=== PATIENT | female | born 1935 | race Two or more races ===

== ENCOUNTER 2018-10-29 09:58 | Day surgery (SDC) | payer MEDICAID ==
--- NOTE | 2018-10-29 07:40 | HP ---
DATE OF SURGERY: 10/29/2018 ANTICIPATED PROCEDURE: Colonoscopy. HISTORY OF PRESENT ILLNESS: The patient has had three years of pain. Constipation in 2012. She has not had a recent colonoscopic examination and presents for such. PAST MEDICAL HISTORY: ALLERGIES: NONE. MEDICATIONS: See list. PAST SURGICAL HISTORY: None recently. SOCIAL HISTORY: Negative. FAMILY HISTORY: Negative. REVIEW OF SYSTEMS: CVS: Negative. Pulmonary negative. GI: Present illness. : Negative. PHYSICAL EXAMINATION: VITAL SIGNS: Normal. CHEST: Clear. COR: Regular. ABDOMEN: Satisfactory. IMPRESSION: Rectal pain, constipation, change in bowel habits. No recent scope. PLAN: Colonoscopy.
[2018-10-29] MEDS ORDERED: DIPRIVAN 200 MG/20 ML IV ONE (09:59)
[2018-10-29] MEDS ORDERED: Ketamine HCl 50 MG/ML IJ ONE (09:59)
[2018-10-29] MEDS ORDERED: ROBINUL IV ONE (09:59)
[2018-10-29] MEDS ORDERED: Lactated Ringers 1,000 ML IV SCH (11:00)
--- NOTE | 2018-10-29 13:04 | OP ---
SURGERY DATE/TIME: 10/29/2018 1145 PREOPERATIVE DIAGNOSIS: Major change in bowel habits. PROCEDURE: Colonoscopy complete to cecum. SURGEON: Ray Metz M.D. ANESTHESIA: COMPLICATIONS: None. CONDITION: Stable. INDICATION: The patient is 82 years old and had a major change in bowel habits, some abdominal discomfort, cramping and quite a bit of constipation. She had not has not had endoscopic examination, 82 years old. DESCRIPTION OF PROCEDURE: Taken to endoscopy. Left lateral decubitus position. MAC sedation provided. Anal digital examination satisfactory. Rectum is voluminous and the colon itself is large diameter about 4 inches and very long, about twice normal length. Despite this once the sigmoid was navigated the rest of the colon was navigated fairly readily to the mid ascending, distal ascending, ileocecal valve and the medial wall of the cecum was well seen. There was a little bit of obscuring behind the valve in the depth of the cecum but there was nothing gross visible. Circumferential withdrawal was satisfactory. IMPRESSION: Grossly normal examination except for severe diameter dilatation and redundancy of the colon. Instructions were given for continued significant use of fiber, six glasses of water to keep the bowels going. She could intermittently have a volvulus and will be studied again. I think a barium enema might actually suggest issues better than a colonoscopy.
[2018-10-29] MEDS ORDERED: APRESOLINE 20 MG/ML INJ IV ONE (13:18)
[2018-10-29 14:11] VITALS: BP 189/75; PULSE 64; O2SAT 95
== END 2018-10-29 14:48 | disposition home or self-care (01) ==
LOC: SDC 09:58
PROVIDERS: ATTEND Surgery
DX: K59.00 Constipation, unspecified (principal); R10.9 Unspecified abdominal pain; K59.39 Other megacolon; K62.89 Other specified diseases of anus and rectum; Q43.8 Other specified congenital malformations of intestine
CPT/HCPCS: J0360; J2704

== ENCOUNTER 2020-11-30 06:03 | Day surgery (SDC) | payer MEDICAID ==
--- NOTE | 2020-11-22 15:11 | HP ---
DATE OF SURGERY: 11/30/2020 HISTORY OF PRESENT ILLNESS: The patient presents with complaints of some rectal bleeding x1. The patient reports being chronically constipated. She presents in a wheelchair today. She is with her daughter. The patient does not speak very good Italian. The daughter is reporting that the patient has had an instance of some bright red rectal bleeding once. The patient complains of just some generalized abdominal pain, reports some upper abdominal burning. The patient's family has reported the patient has hemorrhoids. The patient has had a colonoscopy back in 2019 and found to have redundant colon. The patient declines colonoscopy today. The patient is agreeable to EGD. CT scan of the abdomen and pelvis was ordered for the patient. I do not feel there is any significant pathology occurring in the lower abdomen. However, we are waiting on CT scan report. PAST MEDICAL HISTORY: Hypertension, reflux. PAST SURGICAL HISTORY: Hysterectomy. Bilateral cataracts. ALLERGIES: NONE REPORTED. MEDICATIONS: Metoprolol, amlodipine, omeprazole, Michelle. FAMILY HISTORY: None reported. SOCIAL HISTORY: None reported. REVIEW OF SYSTEMS: CONSTITUTIONAL: Denies fever or chills. CHEST: Denies shortness of breath. CVS: Denies chest pain. ABDOMEN: Reports some generalized abdominal pain. Denies nausea, vomiting, diarrhea. Reports constipation. Reported bright red rectal bleeding. INTEGUMENTARY: Negative. PHYSICAL EXAMINATION: GENERAL: No acute distress. CHEST: Nonlabored. No shortness of breath. CVS: Regular rate and rhythm. ABDOMEN: Soft. EXTREMITIES: No edema. NEUROLOGIC: Alert. PSYCHIATRIC: Appropriate. IMPRESSION: Epigastric pain, upper abdominal burning. PLAN: EGD with Dr. Ray Metz. CT scan has been scheduled. As dictated by Karen Hi NP.
[2020-11-30] MEDS ORDERED: Lactated Ringers 1,000 ML IV SCH (06:30)
[2020-11-30] MEDS ORDERED: DIPRIVAN 200 MG/20 ML IV ONE ×2 (08:29→08:41)
--- NOTE | 2020-11-30 09:06 | OP ---
SURGERY DATE/TIME: 11/30/2020 0828 PREOPERATIVE DIAGNOSIS: Epigastric pain. POSTOPERATIVE DIAGNOSIS: Reflux disease with grade C/D gastroesophageal reflux disease and a 2 inch hiatal hernia. PROCEDURE: EGD. SURGEON: Ray Metz M.D. ANESTHESIA: MAC. COMPLICATIONS: None. CONDITION: Stable. INDICATION: A patient requiring evaluation. DESCRIPTION OF PROCEDURE: Taken to endoscopy. MAC sedation provided. Esophagus was cannulated. Pharygnoesophageal junction normal. Esophagus normal. Down to gastroesophageal junction a rim of esophagitis about 2 cm and total 360 degree circumferential was present. There was a 2 inch hiatal hernia. Fundus, body and antrum normal. Pylorus normal. Duodenal bulb normal. Second portion normal. Scope withdrawn. A keyhole view was totally normal. Scope looped upon itself. Retrograde and there was a 2 inch hiatal hernia. The patient tolerated the procedure satisfactorily. Her medicine was adjusted. She is also having CT scan. She did not want a colonoscopy. She did have one back in, I believe, 2019.
[2020-11-30 09:26] VITALS: O2SAT 100
[2020-11-30 09:37] VITALS: BP 162/83; PULSE 63
== END 2020-11-30 09:54 | disposition home or self-care (01) ==
LOC: SDC 06:03
PROVIDERS: ATTEND Surgery
DX: K21.9 Gastro-esophageal reflux disease without esophagitis (principal); K44.9 Diaphragmatic hernia without obstruction or gangrene; Z79.899 Other long term (current) drug therapy
CPT/HCPCS: J2704

== ENCOUNTER → 2021-08-22 | Day surgery (SDC) | payer MEDICAID ==
[~2021-08-22] MED LIST: BUPIVACAINE 0.5% VIAL IJ ONE; DIPRIVAN 200 MG/20 ML IV ONE; Depo-Medrol 40 MG/ML IM ONE; Lactated Ringers 1,000 ML IV ONE
--- NOTE | 2021-08-22 20:04 | XRAY ---
Indication: Left knee injection. Intraoperative fluoroscopy provided for 4 seconds. Single digital spot image submitted for interpretation demonstrates needle tip projecting over the left femur intercondylar notch. Small amount of contrast injected for needle tip placement. Correlate with intraoperative findings/report.
--- NOTE | 2021-08-22 20:04 | XRAY ---
Indication: Right knee injection. Intraoperative fluoroscopy provided for 13 seconds. Single digital spot image submitted for interpretation demonstrates needle tip projecting over the right femur intercondylar notch. Small amount of contrast injected for needle tip placement. Correlate with intraoperative findings/report.
--- NOTE | 2021-08-23 09:41 | XRAY ---
13 seconds of fluoroscopy was used in surgery for a right knee intra-articular injection.
--- NOTE | 2021-08-23 09:41 | XRAY ---
4 seconds of fluoroscopy was used in surgery for a left knee intra-articular knee injection.
== END ==
LOC: SDC-PAIN 15:26
PROVIDERS: ATTEND Psychiatry & Neurology Pain Medicine
DX: M17.0 Bilateral primary osteoarthritis of knee (principal); I10 Essential (primary) hypertension; Z79.899 Other long term (current) drug therapy
CPT/HCPCS: 20610; 73560; 77002; J1030; J2704; Q9966

== ENCOUNTER → 2021-09-26 | Day surgery (SDC) | payer MEDICAID ==
[~2021-09-26] MED LIST changes: -Lactated Ringers 1,000 ML IV ONE; +Xylocaine-Mpf 2% 5 Ml Vial ONE
--- NOTE | 2021-09-26 18:27 | XRAY ---
Indication: Left shoulder injection. Intraoperative fluoroscopy provided for 10 seconds. Single digital spot image submitted for interpretation demonstrates needle tip projecting over the left glenohumeral joint superiorly. Small amount of contrast injected for needle tip placement. Correlate with intraoperative findings/report.
--- NOTE | 2021-09-27 09:19 | XRAY ---
10 seconds fluoroscopy time in surgery for intra-articular injection of the left shoulder.
== END ==
LOC: SDC-PAIN 13:44
PROVIDERS: ATTEND Psychiatry & Neurology Pain Medicine
DX: M19.012 Primary osteoarthritis, left shoulder (principal); I10 Essential (primary) hypertension; Z79.899 Other long term (current) drug therapy
CPT/HCPCS: 20610; 73030; 77002; J1030; J2704; Q9966

== ENCOUNTER 2021-10-24 13:43 | Day surgery (SDC) | payer MEDICAID ==
[2021-10-24] MEDS ORDERED: Marcaine Mpf 0.5% Vial 30 Ml IJ ONE (13:44)
[2021-10-24] MEDS ORDERED: Depo-Medrol 40 MG/ML IM ONE (13:44)
[2021-10-24] MEDS ORDERED: Lactated Ringers 1,000 ML IV ONE (14:41)
[2021-10-24] MEDS ORDERED: DIPRIVAN 200 MG/20 ML IV ONE (15:03)
--- NOTE | 2021-10-24 16:35 | XRAY ---
Indication: Left shoulder subacromial bursa injection. Intraoperative fluoroscopy provided for 8 seconds. Single digital spot image submitted for interpretation demonstrates needle tip projecting over the left shoulder subacromial space. Small amount of contrast injected for needle tip placement. Correlate with intraoperative findings/report.
--- NOTE | 2021-10-24 16:43 | XRAY ---
8 seconds of fluoroscopy was used in surgery for a left shoulder subacromial bursa injection.
== END 2021-10-24 15:25 | disposition home or self-care (01) ==
LOC: SDC-PAIN 13:43
PROVIDERS: ATTEND Psychiatry & Neurology Pain Medicine
DX: M75.52 Bursitis of left shoulder (principal); Z79.899 Other long term (current) drug therapy
CPT/HCPCS: 20610; 73030; 77002; J1030; J2704; Q9966

== ENCOUNTER 2022-11-02 21:09 | Observation (INO) | payer MEDICAID ==
--- NOTE | 2022-11-02 22:42 | XRAY ---
CLINICAL HISTORY:Confusion; COMPARISON:None; TECHNIQUES:xial non-contrast CT scan of the brain was performed from the skull base to the high parietal region. CTDI: 112.29, DLP: 910.26. CTDI: 53.92; FINDINGS: There are ill-defined [id number] areas noted in the subcortical white matter bilaterally, suggestive of microvascular ischemic changes. The ventricular system, cortical sulci and basal cisterns are prominent consistent with senile changes. Schmidt-white matter differentiation is maintained. No midline shifts or deformity. No intracerebral or extra axial hematoma. Normal CT appearance of the posterior fossa structures namely the cerebellar hemispheres, brainstem and cerebellar peduncles. The IACs are unremarkable. The cerebello-pontine angles are clear. The pituitary gland, the pineal gland, the optic chiasm is unremarkable. The osseous structures in the skull base are unremarkable. No definite calvarium fractures. ThE scanned paranasal sinuses are clear. IMPRESSION: 1. No intracerebral or extra axial hematoma. 2. Microvascular ischemic changes and senile changes. Electronically Signed by: Ines Barragan MD. (11/02/2022 21:34:12 FACTORY EXPERT)
[2022-11-02 22:50] LABS: Absolute Neutrophil Ct (ANC) 3.68 x10^3/uL (1.4-6.9); BASOPHIL % 0.3 % (0.0-0.4); Basophil (Absolute #) 0.02 x10^3/uL (0-0.4); Eosinophil (Absolute #) 0.13 x10^3/uL (0-0.5); Hematocrit 38.7 % (35-47); Hemoglobin 12.4 g/dL (12.0-16.0); IMMATURE GRAN # 0.02 x10^3u/L (0.00-0.03); IMMATURE GRAN % 0.3 % (0.00-0.4); Lymphocyte (Absolute #) 1.98 x10^3/uL (1.0-4.6); Lymphocytes % 30.6 % (24.0-44.0); Mean Cell Volume 96.5 fL (78-100); Mean Corpuscular Hemoglobin 30.9 pg (26-32); Mean Platelet Volume 10.1 fL (7.5-11.0); Monocyte (Absolute #) 0.65 x10^3/uL (0.0-1.3); Neutrophil % 56.8 % (36.0-66.0); Platelet Count 214 x10^3/uL (150-450); Red Blood Count 4.01 x10^6/uL (4.1-5.4); Red Cell Distribution Width 13.7 % (11.5-14.0); White Blood Count 6.5 x10^3/uL (4.0-10.5)
[2022-11-02 23:01] LABS: Appearance Turbid (Clear); Bacteria Few /HPF (None Seen); Bilirubin Negative (Negative); Blood Small (Negative); Epithelial Cells Rare /HPF (None Seen); Glucose, Urine Negative (Negative); Hyaline Casts NONE SEEN /LPF (0-2); Ketones Negative (Negative); Leukocyte Esterase Large (Negative); Nitrite Positive (Negative); Ph 5.5 (4.6-8.0); Protein,Urine Dip Negative (Negative); RBC 0-2 /HPF (0-5); Specific Gravity <=1.005 (1.005-1.030); Urobilinogen 0.2 mg/dL (0.2); WBC >100 /HPF (0-5)
[2022-11-02 23:03] LABS: ADD URINE CULTURE? YES (NO); ALKALINE PHOSPHATASE 91 U/L (38-126); ANION GAP 14.5 MEQ/L (5-15); BLOOD UREA NITROGEN 16 mg/dL (7-17); CHLORIDE 103 mmol/L (98-107); Calcium 9.3 mg/dL (8.4-10.2); Carbon Dioxide 25 mmol/L (22-30); Creatinine 1 0.67 mg/dL (0.52-1.04); EST GLOMERULAR FILTRATION RATE > 60.0 ML/MIN; Glucose 98 mg/dL (74-106); SGOT/AST 28 U/L (14-36); SGPT/ALT 14 U/L (0-35); SODIUM 139 mmol/L (137-145); Total Protein 7.6 g/dL (6.3-8.2)
[2022-11-02 23:15] LABS: TROPONIN 0.027 ng/mL (0.000-0.034)
[2022-11-02] MEDS ORDERED: ROCEPHIN 2 Gm-D5w 50ML BAG** 2 G/50 ML IVPB IV STA (23:30)
--- NOTE | 2022-11-02 23:35 | ERPHSYRPT ---
- History of Present Illness Time Seen by Provider: 11/02/22 21:18 Source: patient, family Exam Limitations: clinical condition Patient Subjective Stated Complaint: pts daughter states that for the last 5-6 mos her mother has been very confused, thinking she is in [place], attempting to hit herself in the face, attempting to wander out of house and away. Today while the daughter was using the restroom the pt got out of the house and was found by a bystander wandering around [address] bystander brought pt to ED, daughter arrived to chicken picker her mother and pt refused to get into car with daughter. daughter states that her behavior today is unchanged from current behavior of last 5-6mos. Triage Nursing Assessment: pt brought into room 5 via wheelchair and assisted per 2 into bed with steady slow moving gait. daughter states she uses a walker at home and ambulates independently without difficulty. pt did not have walker with her when she was found on [address] all assessment/ evaluation completed using daughter and Dr Huff as translators. pt does not speak or understand Setswana. pt denies pain, sob, difficulty breathing, changes/ difficulty with urination or bowel movements, nausea, vomiting, diarrhea, constipation, dizziness, lightheadedness, loss of conciousness, difficulty eating or drinking. bilat radial and pedal pulses strong, palpable, and equal. resp even and unlabored, able to move all extremities, follows commands, speaks in complete sentences and is oriented to self, her daughter, and place only. follows simple directions but not complex instructions. per Dr Huff there is no need to complete an NIHSS assessment at this time as stroke is not a differential diagnosis at this time. Physician History: 86-year-old female with history of hypertension, hyperlipidemia, dementia not taking any medication having chronic confusion for months which is lately worsening. Per daughter patient gets angry and tries to hit herself with different things and tries to leave the house and somehow she was able to manage escape. She was wandering in the streets and was brought in the ER for evalu ation. Daughter came in to pick her up and she refused to go with her. Patient is not in any distress, not fully oriented and answering few questions. She is moving all 4 extremities. Denies any chest or abdominal pain. Daughter also denies having any difficulty breathing or she complaining of any physical symptoms. She does have chronic lower extremity swelling which is not any worse than usual. Not a good historian and history is limited. Timing/Duration: week(s), gradual onset, worse Severity: moderate Associated Symptoms: denies symptoms Allergies/Adverse Reactions: pain medication Allergy (Uncoded 11/02/22 23:00) Rash patient daughter unsure what medication Home Medications: Amlodipine Besylate 10 mg PO DAILY 10/15/18 [History] Metoprolol Succinate 50 mg [Toprol Xl 50 MG] 50 mg PO BID 10/15/18 [History] Acetaminophen [Tylenol Arthritis] 650 mg PO TID PRN 11/02/22 [History] Aspirin 81 gm Chew [Baby Aspirin 81 mg Chew] 81 mg PO DAILY 11/02/22 [History] Hx Tetanus, Diphtheria Vaccination/Date Given: Yes Hx Influenza Vaccination/Date Given: Yes Hx Pneumococcal Vaccination/Date Given: Yes Immunizations Up to Date: Yes Travel Risk - International Travel Have you traveled outside of the country in past 3 weeks: No - Coronavirus Screening Are you exhibiting any of the following symptoms?: No Close contact with a COVID-19 positive Pt in past 14-21 Days: No - Vaccine Status Have you recieved a Covid-19 vaccination: Yes Family Development Extension Specialist: Unknown - Vaccination Dates Date of 2cond Vaccination (if applicable): unknown Dates if Unknown: unknown - Review of Systems All Other Systems: Unable due to dementia - Past Medical History Pertinent Past Medical History: Yes Neurological History: Stroke, Other ENT History: Cataracts Cardiac History: Congestive Heart Failure, Hypertension Respiratory History: No Pertinent History Endocrine Medical History: No Pertinent History Musculoskeletal History: Arthritis GI Medical History: GERD History: No Pertinent History Psycho-Social History: No Pertinent History Female Reproductive Disorders: No Pertinent History Other Medical History: confusion for 5-6mos and dtr states has not been officially diagnosed or treated for dementia. - Past Surgical History Past Surgical History: Yes Neuro Surgical History: No Pertinent History Cardiac: No Pertinent History Respiratory: No Pertinent History Gastrointestinal: No Pertinent History Genitourinary: No Pertinent History Musculoskeletal: No Pertinent History Female Surgical History: Hysterectomy Other Surgical History: colonoscopy - Social History Smoking Status: Never smoker Exposure to second hand smoke: No Drug Use: none Patient Lives Alone: No - Nursing Vital Signs Nursing Vital Signs: Initial Vital Signs Temperature 98.2 F 11/02/22 21:46 Pulse Rate 73 11/02/22 21:46 Respiratory Rate 16 11/02/22 21:46 Blood Pressure 184/72 11/02/22 21:46 O2 Sat by Pulse Oximetry 100 11/02/22 21:46 Pain Scale Pain Intensity 0 - Physical Exam General Appearance: no apparent distress, alert Eye Exam: PERRL/EOMI Ears, Nose, Throat Exam: normal ENT inspection, TMs normal, pharynx normal, moist mucous membranes Neck Exam: normal inspection, non-tender, supple, full range of motion Respiratory Exam: normal breath sounds, lungs clear Cardiovascular Exam: regular rate/rhythm, normal heart sounds, edema (2+ bilaterally) Gastrointestinal/Abdomen Exam: soft, normal bowel sounds, No tenderness Back Exam: normal inspection, normal range of motion Extremity Exam: normal inspection, normal range of motion Neurologic Exam: alert, cooperative, retirement assistant II-XII nml as tested, nml station & gait, sensation nml, No oriented x 3, No normal mood/affect, No motor deficits Skin Exam: normal color SpO2 Interpretation: normal SpO2: 99 O2 Delivery: Room Air - Course EKG Interpreted by Me: RATE (65), Sinus Rhythm, Left [place] Deviation, NORMAL INTERVALS, Non-specific ST Changes Ordered Tests: Active Orders 24 hr Category Date Time Status EKG-ER Only STAT Care 11/02/22 21:48 Active IV Insertion STAT Care 11/02/22 21:48 Active CHEST 1 VIEW (PORTABLE) Stat Exams 11/02/22 21:48 Taken HEAD WITHOUT CONTRAST [CT] Stat Exams 11/02/22 21:49 Completed BLOOD CULTURE Stat Lab 11/02/22 22:48 Received CBC W DIFF Stat Lab 11/02/22 22:46 Completed CMP Stat Lab 11/02/22 22:46 Completed CULTURE,URINE Stat Lab 11/02/22 22:46 Received Lactic Acid Stat Lab 11/02/22 22:32 Completed MAG [MAGNESIUM] Stat Lab 11/02/22 22:48 Completed NT PRO BNPII Stat Lab 11/02/22 22:46 Completed TROPONIN Q4H Lab 11/02/22 22:46 Completed TROPONIN Q4H Lab 11/03/22 02:00 Ordered TROPONIN Q4H Lab 11/03/22 06:00 Ordered UA W/RFX UR CULTURE Stat Lab 11/02/22 22:46 Completed Transfer Order Routine Transfer 11/03/22 Ordered Medication Summary Discontinued Medications Generic Name Dose Route Start Last Admin Trade Name Clare PRN Reason Stop Dose Admin Ceftriaxone Sodium/Dextrose 2 g in 50 mls @ 100 mls/hr 11/02/22 23:30 11/03/22 00:10 Rocephin 2 Gm-D5w 50ml Bag IV 11/02/22 23:59 100 ml/hr STAT STA 100 mls/hr Administration Ceftriaxone Sodium/Dextrose Confirm 11/03/22 00:06 Rocephin 2 Gm-D5w 50ml Bag Administered 11/03/22 00:07 Dose 2 g in 50 mls @ ud IV .K-MED ONE Lab/Rad Data: Laboratory Result Diagrams 11/02/22 22:46 11/02/22 22:46 Laboratory Results 11/02/22 11/02/22 11/02/22 Range/Units 22:48 22:46 22:46 WBC (4.0-10.5) x10^3/uL RBC (4.1-5.4) x10^6/uL Hgb (12.0-16.0) g/dL Hct (35-47) % MCV (78-100) fL MCH (26-32) pg MCHC (32-36) g/dL RDW (11.5-14.0) % Plt Count (150-450) x10^3/uL MPV (7.5-11.0) fL Gran % (36.0-66.0) % Immature Gran % (Auto) (0.00-0.4) % Nucleat RBC Rel Count (0.00-0.1) % Eos # (Auto) (0-0.5) x10^3/uL Immature Gran # (Auto) (0.00-0.03) x10^3u/L Absolute Lymphs (auto) (1.0-4.6) x10^3/uL Absolute Monos (auto) (0.0-1.3) x10^3/uL Absolute Nucleated RBC (0.00-0.01) x10^3u/L Lymphocytes % (24.0-44.0) % Monocytes % (0.0-12.0) % Eosinophils % (0.00-5.0) % Basophils % (0.0-0.4) % Absolute Granulocytes (1.4-6.9) x10^3/uL Basophils # (0-0.4) x10^3/uL Sodium 139 (137-145) mmol/L Potassium 4.0 (3.5-5.1) mmol/L Chloride 103 (98-107) mmol/L Carbon Dioxide 25 (22-30) mmol/L Anion Gap 14.5 (5-15) MEQ/L BUN 16 (7-17) mg/dL Creatinine 0.67 (0.52-1.04) mg/dL Estimated GFR > 60.0 ML/MIN Glucose 98 (74-106) mg/dL Lactic Acid (0.4-2.0) Calcium 9.3 (8.4-10.2) mg/dL Magnesium 2.1 (1.6-2.3) mg/dL Total Bilirubin 0.40 (0.2-1.3) mg/dL AST 28 (14-36) U/L ALT 14 (0-35) U/L Alkaline Phosphatase 91 (38-126) U/L Troponin I 0.027 (0.000-0.034) ng/mL NT-Pro-B Natriuret Pep 547 (<300) pg/mL Serum Total Protein 7.6 (6.3-8.2) g/dL Albumin 4.0 (3.5-5.0) g/dL Urine Color (Yellow) Urine Appearance (Clear) Urine pH (4.6-8.0) Ur Specific [place] (1.005-1.030) Urine Protein (Negative) Urine Glucose (UA) (Negative) mg/dL Urine Ketones (Negative) Urine Blood (Negative) Urine Nitrite (Negative) Urine Bilirubin (Negative) Urine Urobilinogen (0.2) mg/dL Ur Leukocyte Esterase (Negative) U Hyaline Cast (Auto) (0-2) /LPF Urine Microscopic RBC (0-5) /HPF Urine Microscopic WBC (0-5) /HPF Ur Epithelial Cells (None Seen) /HPF Urine Bacteria (None Seen) /HPF Urine Culture Reflexed (NO) 11/02/22 11/02/22 11/02/22 Range/Units 22:46 22:46 22:32 WBC 6.5 (4.0-10.5) x10^3/uL RBC 4.01 L (4.1-5.4) x10^6/uL Hgb 12.4 (12.0-16.0) g/dL Hct 38.7 (35-47) % MCV 96.5 (78-100) fL MCH 30.9 (26-32) pg MCHC 32.0 (32-36) g/dL RDW 13.7 (11.5-14.0) % Plt Count 214 (150-450) x10^3/uL MPV 10.1 (7.5-11.0) fL Gran % 56.8 (36.0-66.0) % Immature Gran % (Auto) 0.3 (0.00-0.4) % Nucleat RBC Rel Count 0.0 (0.00-0.1) % Eos # (Auto) 0.13 (0-0.5) x10^3/uL Immature Gran # (Auto) 0.02 (0.00-0.03) x10^3u/L Absolute Lymphs (auto) 1.98 (1.0-4.6) x10^3/uL Absolute Monos (auto) 0.65 (0.0-1.3) x10^3/uL Absolute Nucleated RBC 0.00 (0.00-0.01) x10^3u/L Lymphocytes % 30.6 (24.0-44.0) % Monocytes % 10.0 (0.0-12.0) % Eosinophils % 2.0 (0.00-5.0) % Basophils % 0.3 (0.0-0.4) % Absolute Granulocytes 3.68 (1.4-6.9) x10^3/uL Basophils # 0.02 (0-0.4) x10^3/uL Sodium (137-145) mmol/L Potassium (3.5-5.1) mmol/L Chloride (98-107) mmol/L Carbon Dioxide (22-30) mmol/L Anion Gap (5-15) MEQ/L BUN (7-17) mg/dL Creatinine (0.52-1.04) mg/dL Estimated GFR ML/MIN Glucose (74-106) mg/dL Lactic Acid 1.9 (0.4-2.0) Calcium (8.4-10.2) mg/dL Magnesium (1.6-2.3) mg/dL Total Bilirubin (0.2-1.3) mg/dL AST (14-36) U/L ALT (0-35) U/L Alkaline Phosphatase (38-126) U/L Troponin I (0.000-0.034) ng/mL NT-Pro-B Natriuret Pep (<300) pg/mL Serum Total Protein (6.3-8.2) g/dL Albumin (3.5-5.0) g/dL Urine Color Yellow (Yellow) Urine Appearance Turbid A (Clear) Urine pH 5.5 (4.6-8.0) Ur Specific [place] <=1.005 (1.005-1.030) Urine Protein Negative (Negative) Urine Glucose (UA) Negative (Negative) mg/dL Urine Ketones Negative (Negative) Urine Blood Small A (Negative) Urine Nitrite Positive A (Negative) Urine Bilirubin Negative (Negative) Urine Urobilinogen 0.2 (0.2) mg/dL Ur Leukocyte Esterase Large A (Negative) U Hyaline Cast (Auto) NONE SEEN (0-2) /LPF Urine Microscopic RBC 0-2 (0-5) /HPF Urine Microscopic WBC >100 A (0-5) /HPF Ur Epithelial Cells Rare (None Seen) /HPF Urine Bacteria Few A (None Seen) /HPF Urine Culture Reflexed YES (NO) - Progress Progress: unchanged Progress Note: 11/02/22 23:34 86-year-old female with history of hypertension, hyperlipidemia, dementia not taking any medication having chronic confusion for months which is lately worsening. Per daughter patient gets angry and tries to hit herself with different things and tries to leave the house and somehow she was able to manage escape. She was wandering in the streets and was brought in the ER for evaluation. Daughter came in to pick her up and she refused to go with her. Patient is not in any distress, not fully oriented and answering few questions. She is moving all 4 extremities. Denies any chest or abdominal pain. Daughter also denies having any difficulty breathing or she complaining of any physical symptoms. She does have chronic lower extremity swelling which is not any worse than usual. Not a good historian and history is limited. Patient is not in any distress. Although patient is negative on stroke scale, obtain CT head which did not show any acute intracranial findings. She has normal white count, fairly unremarkable chemistries but does have UTI. Chest x-ray did not show any obvious pneumonic infiltrate reviewed by me, official report is pending. EKG no ST elevations and negative initial troponins. I believe patient has dementia at baseline and worsening is secondary to having UTI. I would admit her to the hospitalist service. 11/03/22 00:24 I have discussed the results of work-up with patient and family, also discussed with Dr. Salazar and patient is being admitted. Discussed with : Mine Will see patient in: hospital (observation) Counseled pt/family regarding: lab results, diagnosis, need for follow-up, rad results Medical Desision Making - Independent Historian Additional History obtained from: Child - Discussion of managment Care discussed with:: hospitalist (Dr. Salazar) Reviewed:: Test results, Need for additional workup Agreed on:: Treatment plan, place in obs Will see patient: in hospital - Diagnostic Testing Diagnostic test were ordered, analyzed, and reviewed by me: Yes Radiological Interpretation: Interpreted by me, Reviewed by me - Risk of complications The pt has a high risk of morbidity or mortality based on: Decision regarding hospitilization or escalation of hosp level of care - Departure Departure Disposition: Observation Clinical Impression: Confusion, Acute UTI, Dementia with behavioral disturbance Condition: Stable Critical Care Time: No
[2022-11-03] MEDS ORDERED: ROCEPHIN 2 Gm-D5w 50ML BAG** 2 G/50 ML IVPB IV ONE (00:06)
[2022-11-03] MEDS ORDERED: DUONEB 0.5-3 MG/3 ml Neb IH PRN (00:43)
[2022-11-03] MEDS ORDERED: TYLENOL 325 MG PO PRN (00:43)
[2022-11-03] MEDS ORDERED: Ativan 1 MG PO ONE (01:58)
[2022-11-03] MEDS: Toprol Xl 50 MG PO SCH ×3 (02:08→22:18)
[2022-11-03] MEDS: ENOXAPARIN SODIUM SQ SCH ×2 (03:10→16:04)
--- NOTE | 2022-11-03 08:33 | XRAY ---
Indication: Confusion. Comparison: None Portable chest hyperinflated and clear. Heart not enlarged with incidental tiny hilar calcified nodes and tortuous descending aorta. Bony thorax intact with osteopenia and mild/moderate degenerative changes. Impression: Nonacute chest with chronic features.
[2022-11-03 08:35] LABS: Absolute Neutrophil Ct (ANC) 3.14 x10^3/uL (1.4-6.9); BASOPHIL % 0.2 % (0.0-0.4); Basophil (Absolute #) 0.01 x10^3/uL (0-0.4); Eosinophil % 3.6 % (0.00-5.0); Eosinophil (Absolute #) 0.22 x10^3/uL (0-0.5); Hematocrit 34.8 % (35-47); Hemoglobin 10.9 g/dL (12.0-16.0); IMMATURE GRAN # 0.01 x10^3u/L (0.00-0.03); IMMATURE GRAN % 0.2 % (0.00-0.4); Lymphocyte (Absolute #) 2.12 x10^3/uL (1.0-4.6); Lymphocytes % 34.9 % (24.0-44.0); Mean Cell Volume 96.7 fL (78-100); Mean Corpuscular Hemoglobin 30.3 pg (26-32); Mean Corpuscular Hgb Concent. 31.3 g/dL (32-36); Mean Platelet Volume 10.1 fL (7.5-11.0); Monocyte (Absolute #) 0.57 x10^3/uL (0.0-1.3); Monocytes % 9.4 % (0.0-12.0); Neutrophil % 51.7 % (36.0-66.0); Platelet Count 192 x10^3/uL (150-450); Red Cell Distribution Width 13.7 % (11.5-14.0); White Blood Count 6.1 x10^3/uL (4.0-10.5)
[2022-11-03 08:59] LABS: ALBUMIN 3.1 g/dL (3.5-5.0); ALKALINE PHOSPHATASE 66 U/L (38-126); ANION GAP 9.8 MEQ/L (5-15); BLOOD UREA NITROGEN 11 mg/dL (7-17); CHLORIDE 106 mmol/L (98-107); Carbon Dioxide 28 mmol/L (22-30); Creatinine 1 0.59 mg/dL (0.52-1.04); EST GLOMERULAR FILTRATION RATE > 60.0 ML/MIN; Glucose 86 mg/dL (74-106); Potassium 3.6 mmol/L (3.5-5.1); SGOT/AST 25 U/L (14-36); SGPT/ALT 13 U/L (0-35); SODIUM 141 mmol/L (137-145); Total Protein 6.3 g/dL (6.3-8.2)
[2022-11-03] MEDS: PROTONIX 40 MG IV IV SCH (09:39)
[2022-11-03] MEDS: NORVASC 5 MG PO SCH (09:40)
[2022-11-03] MEDS: ECOTRIN 81 MG PO SCH (09:40)
[2022-11-03] MEDS: ROCEPHIN 2 Gm-D5w 50ML BAG** 2 G/50 ML IVPB IV SCH (09:41)
[2022-11-03] MEDS ORDERED: BABY ASPIRIN 81 MG CHEW PO SCH (10:00)
[2022-11-03] MEDS ORDERED: NON-FORMULARY ITEM (Amlodipine Besylate [Amlodipine Besylate] 10 MG Tablet) PO SCH (10:00)
[2022-11-03] MEDS: Aricept 10 MG PO SCH (10:33)
[2022-11-03] MEDS: Risperdal 1 MG PO SCH ×2 (10:33→22:17)
[2022-11-04] MEDS: PROTONIX 40 MG IV IV SCH (09:42)
[2022-11-04] MEDS: ROCEPHIN 2 Gm-D5w 50ML BAG** 2 G/50 ML IVPB IV SCH (09:42)
[2022-11-04] MEDS: NORVASC 5 MG PO SCH (09:43)
[2022-11-04] MEDS: ECOTRIN 81 MG PO SCH (09:43)
[2022-11-04 09:44] VITALS: BP 154/70; PULSE 63; O2SAT 92
[2022-11-04] MEDS: Aricept 10 MG PO SCH (09:46)
[2022-11-04] MEDS: Toprol Xl 50 MG PO SCH (09:47)
[2022-11-04] MEDS: Risperdal 1 MG PO SCH (09:48)
[2022-11-04] MEDS: ENOXAPARIN SODIUM SQ SCH (10:42)
--- NOTE | 2022-11-04 10:43 | PCM.DCORD ---
- Discharge Disposition: Home, Self-Care Condition: Stable Prescriptions: New Memantine HCl 5 mg [Namenda 5 MG] 0 mg PO DAILY #30 tablet Fluoxetine HCl 10 mg [Prozac 10 mg] 10 mg PO DAILY #30 tablet Continue Metoprolol Succinate 50 mg [Toprol Xl 50 MG] 50 mg PO BID Amlodipine Besylate 10 mg PO DAILY Aspirin 81 gm Chew [Baby Aspirin 81 mg Chew] 81 mg PO DAILY Acetaminophen [Tylenol Arthritis] 650 mg PO TID PRN PRN Reason: Pain Follow up with: LYLA SIDDIQI [Primary Care Provider] - 11/12/22 2:45 pm (If you feel the need to see your primary care physician, please feel free to call the update to check for cancellations and earlier appointments as that can change daily. )
[2022-11-04 11:10] LABS: Appearance Cloudy (Clear); Bacteria None Seen /HPF (None Seen); Bilirubin Negative (Negative); Blood Trace (Negative); Epithelial Cells None Seen /HPF (None Seen); Glucose, Urine Negative (Negative); Hyaline Casts NONE SEEN /LPF (0-2); Ketones Negative (Negative); Leukocyte Esterase Large (Negative); Nitrite Negative (Negative); Ph 6.5 (4.6-8.0); Protein,Urine Dip Negative (Negative); RBC 0-2 /HPF (0-5); Urobilinogen 0.2 mg/dL (0.2); WBC >100 /HPF (0-5)
[2022-11-04 11:14] LABS: ADD URINE CULTURE? YES (NO)
--- NOTE | 2022-11-26 22:58 | PCM.SSS ---
History of Present Illness - Chief Complaint Chief Complaint: Acute UTI, Dementia Date: 11/04/22 History of Present Illness: is a 86 year old female.pts daughter states that for the last 5-6 mos her mother has been very confused, thinking she is in [place], attempting to hit herself in the face, attempting to wander out of house and away. Today while the daughter was using the restroom the pt got out of the house and was found by a bystander wandering around [address] bystander brought pt to ED, daughter arrived to pick remover her mother and pt refused to get into car with daughter. daughter states that her behavior today is unchanged from current behavior of last 5-6mos. - Review of Systems Constitutional: No Fever, No Chills Eyes: No Symptoms Ears, Nose, & Throat: No Symptoms Respiratory: No Cough, No Short Of Breath Cardiac: No Chest Pain, No Edema, No Syncope Abdominal/Gastrointestinal: No Abdominal Pain, No Nausea, No Vomiting, No Diarrhea Genitourinary Symptoms: No Dysuria Musculoskeletal: No Back Pain, No Neck Pain Skin: No Rash Neurological: Irritability Psychological: Mood Changes Endocrine: No Symptoms Hematologic/Lymphatic: No Symptoms Immunological/Allergic: No Symptoms Medications & Allergies Home Medications: Home Medication List Amlodipine Besylate 10 mg PO DAILY 10/15/18 [History Confirmed 11/02/22] Metoprolol Succinate 50 mg [Toprol Xl 50 MG] 50 mg PO BID 10/15/18 [History Confirmed 11/02/22] Acetaminophen [Tylenol Arthritis] 650 mg PO TID PRN 11/02/22 [History Confirmed 11/02/22] Aspirin 81 gm Chew [Baby Aspirin 81 mg Chew] 81 mg PO DAILY 11/02/22 [History Confirmed 11/02/22] Cefuroxime Axetil 500 mg [Ceftin 500 mg] 500 mg PO BID 5 Days #10 tablet 11/04/22 [Rx] Fluoxetine HCl 10 mg [Prozac 10 mg] 10 mg PO DAILY #30 tablet 11/04/22 [Rx] Memantine HCl 5 mg [Namenda 5 MG] 0 mg PO DAILY #30 tablet 11/04/22 [Rx] Allergies/Adverse Reactions: Allergies Allergy/AdvReac Type Severity Reaction Status Date / Time pain medication Allergy Rash Uncoded 11/02/22 23:00 - Past Medical History Past Medical History: Yes Neurological History: Stroke, Other ENT History: Cataracts Cardiac History: Congestive Heart Failure, Hypertension Respiratory History: No Pertinent History Endocrine Medical History: No Pertinent History Musculoskelatal History: Arthritis GI Medical History: GERD History: No Pertinent History Pyscho-Social History: No Pertinent History Reproductive Disorders: No Pertinent History Comment: confusion for 5-6mos and dtr states has not been officially diagnosed or treated for dementia. - Past Surgical History Past Surgical History: Yes Neuro Surgical History: No Pertinent History Cardiac History: No Pertinent History Respiratory Surgery: No Pertinent History GI Surgical History: No Pertinent History Genitourinary Surgical Hx: No Pertinent History Musculskeletal Surgical Hx: No Pertinent History Female Surgical History: Hysterectomy Other Surgical History: colonoscopy - Social History Smoking Status: Never smoker Exposure to second hand smoke: No Alcohol: None Drug Use: none - Physical Exam General Appearance: no apparent distress, alert Neurologic Exam: alert, oriented x 3, cooperative, normal mood/affect, nml cerebellar function, nml station & gait, sensation nml, No motor deficits Eye Exam: PERRL/EOMI, eyes nml inspection Ears, Nose, Throat Exam: normal ENT inspection, TMs normal, pharynx normal, moist mucous membranes Neck Exam: normal inspection, non-tender, supple, full range of motion Respiratory Exam: normal breath sounds, lungs clear, No respiratory distress Cardiovascular Exam: regular rate/rhythm, normal heart sounds, normal peripheral pulses Gastrointestinal/Abdomen Exam: soft, normal bowel sounds, No tenderness, No mass Back Exam: normal inspection, normal range of motion, No CVA tenderness, No vertebral tenderness Extremity Exam: normal inspection, normal range of motion, pelvis stable Skin Exam: normal color, warm, dry, No rash Lymphatic Exam: No adenopathy Results - Labs Lab/Micro Results: Microbiology 11/02/22 22:46 Blood Culture - Final Blood 11/02/22 22:48 Blood Culture - Final Blood 11/04/22 10:58 Urine Culture - Final Clean Catch Midstream NO GROWTH 11/02/22 22:46 Urine Culture - Final Urine, Catheterized Klebsiella Oxytoca Assessment/Plan (1) Acute UTI Status: Acute Code(s): N39.0 - URINARY TRACT INFECTION, SITE NOT SPECIFIED (2) Dementia with behavioral disturbance Status: Acute Code(s): F03.918 - UNSP DEMENTIA, UNSP SEVERITY, WITH OTHER [facility] Summary - Hospital Course Hospital Course: Pt. admitted and started on IV antibiotics and medications for behavior disturbances, and dementia with no further requirements for hospitalization, pt. ready for discharge to home with new medications to attempt to ameliorate her ongoing behaviors. Daughter voices understanding and patient agrees with plan - Vitals & Intake/Output Vital Signs: Vital Signs Temperature 98.2 F 11/04/22 08:00 Pulse Rate 63 11/04/22 08:00 Respiratory Rate 19 11/04/22 08:00 Blood Pressure 154/70 11/04/22 08:00 O2 Sat by Pulse Oximetry 92 L 11/04/22 08:00 - Lab Result Diagrams: 11/03/22 08:05 11/03/22 08:05 Micro Results-Entire Visit: Microbiology 11/02/22 22:46 Blood Culture - Final Blood 11/02/22 22:48 Blood Culture - Final Blood 11/04/22 10:58 Urine Culture - Final Clean Catch Midstream NO GROWTH 11/02/22 22:46 Urine Culture - Final Urine, Catheterized Klebsiella Oxytoca - Discharge Discharge Date: 11/04/22 Disposition: Home, Self-Care Condition: Stable Prescriptions: New Memantine HCl 5 mg [Namenda 5 MG] 0 mg PO DAILY #30 tablet Fluoxetine HCl 10 mg [Prozac 10 mg] 10 mg PO DAILY #30 tablet Cefuroxime Axetil 500 mg [Ceftin 500 mg] 500 mg PO BID 5 Days #10 tablet Continue Metoprolol Succinate 50 mg [Toprol Xl 50 MG] 50 mg PO BID Amlodipine Besylate 10 mg PO DAILY Aspirin 81 gm Chew [Baby Aspirin 81 mg Chew] 81 mg PO DAILY Acetaminophen [Tylenol Arthritis] 650 mg PO TID PRN PRN Reason: Pain Instructions: Urinary Tract Infection, Adult (DC) Follow up with: LYLA SIDDIQI [Primary Care Provider] - 11/12/22 2:45 pm (If you feel the need to see your primary care physician, please feel free to call the update to check for cancellations and earlier appointments as that can change daily. ) Forms: Discharge Instructions
== END 2022-11-04 11:57 | disposition home or self-care (01) ==
LOC: ED 21:09 → MED SURG 11-03 00:37
PROVIDERS: ADMIT Family Medicine; ATTEND Family Medicine
DX: N39.0 Urinary tract infection, site not specified (principal); F03.918 Unspecified dementia, unspecified severity, with other behavioral disturbance; I11.0 Hypertensive heart disease with heart failure; I50.9 Heart failure, unspecified; Z79.899 Other long term (current) drug therapy; Z20.828 Contact with and (suspected) exposure to other viral communicable diseases
CPT/HCPCS: 36000; 36415; 70450; 71045; 80053; 81001; 83605; 83735; 83880; 84484; 85025; 87040; 87077; 87086; 87186; 93005; 93268; 96365; 99285; J0696; J1650; A9270-GY; G0378